=== PATIENT | male | born 1970 | race Caucasian/White ===

== ENCOUNTER 2019-08-24 01:21 | Emergency (ER) | payer OTHER ==
[2019-08-24] MEDS ORDERED: Acetaminophen/oxyCODONE 325-5 MG Tab PO ONE (01:49)
[2019-08-24] MEDS ORDERED: Lidocaine 1% 10 ML MDV INJECT ONE (01:49)
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
--- NOTE | 2019-08-24 02:20 | CR ---
Indication: Injury Technique: Two views of the left hand Comparison: None available Findings: Bones: No acute fracture or dislocation. A chronic deformity of the 5th metacarpal. Flexion alignment of the 2nd PIP joint on both views. Joint spaces: Unremarkable. Soft tissues: Apparent soft tissue swelling and mild focal soft tissue irregularity at the thenar eminence. Impression: No acute fracture or dislocation. Flexion alignment at the 2nd PIP joint on both views. Correlate clinically for regional tendinous injury. Dictated by Robin Boothe MD @ 08/24/2019 2:17:43 AM Dictated by: Robin Boothe MD @ 08/24/2019 02:17:50 (Electronically Signed)
[2019-08-24] MEDS ORDERED: Bacitracin Oint 1 GM U/D Packet TOP ONE (03:44)
[2019-08-24] MEDS ORDERED: Bacitracin Oint 1 GM U/D Packet ONE (03:44)
== END 2019-08-24 04:00 | disposition home or self-care (01) ==
LOC: MW.ED 01:21
DX: S61.412A Laceration without foreign body of left hand, initial encounter (principal); I10 Essential (primary) hypertension; I25.2 Old myocardial infarction; F17.210 Nicotine dependence, cigarettes, uncomplicated; Y99.0 Civilian activity done for income or pay; W26.9XXA Contact with unspecified sharp object(s), initial encounter
CPT/HCPCS: 12002; 73120; 99283; A9270; J2001; 12001

== ENCOUNTER 2019-11-11 11:25 | Emergency (ER) | payer OTHER ==
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
[2019-11-11] MEDS ORDERED: Clindamycin HCl 150 MG Cap PO ONE (12:28)
== END 2019-11-11 12:45 | disposition home or self-care (01) ==
LOC: MW.ED 11:25
DX: T23.322A Burn of third degree of single left finger (nail) except thumb, initial encounter (principal); I10 Essential (primary) hypertension; I25.2 Old myocardial infarction; F17.210 Nicotine dependence, cigarettes, uncomplicated; Z79.82 Long term (current) use of aspirin; X19.XXXA Contact with other heat and hot substances, initial encounter
CPT/HCPCS: 99283; A9270